=== PATIENT | male | born 1990 | race Two or more races ===

== ENCOUNTER 2020-12-01 07:29 | Day surgery (SDC) | payer OTHER ==
[2020-12-01] MEDS ORDERED: KETO10TA2 PO (10:04)
[2020-12-01] MEDS ORDERED: PERCOCET 5-3251 EACH PO (10:04)
[2020-12-01] MEDS ORDERED: DERMOPLAST PAIN78 GM TOP (10:05)
== END 2020-12-01 15:40 | disposition home or self-care (01) ==
LOC: CIR.AMB 07:29 → AMB-ENDOS 10:45 → CIR.AMB 15:40
PROVIDERS: ATTEND Surgery
DX: D01.3 Carcinoma in situ of anus and anal canal (principal); Z20.822 Contact with and (suspected) exposure to COVID-19